=== PATIENT | male | born 1970 | race Caucasian/White ===

== ENCOUNTER 2023-01-02 08:14 | Emergency (ER) | payer OTHER, SELFPAY ==
--- NOTE | ~2023-01-02 | CT_ITS ---
Noncontrast CT scan of the cervical spine Technique: Multiple contiguous axial [address] images of the cervical spine were obtained and rec onstructed in 2D sagittal and coronal planes on the acquisition scanner. Dose reduction technique was used on this scan by utilizing automated exposure control, adjustment of the mA and/or kV according to patient size. Clinical History: Pain Findings: No fractures or dislocations. Mild scattered facet joint degenerative changes are noted. T he intervertebral disc spaces are preserved. No prevertebral soft tissue swelling. Impression: No fracture or subluxation of the cervical spine. Reviewed, dictated and finalized at location . MAKING MACHINE OPERATOR Impression: No fracture or subluxation of the cervical spine.
--- NOTE | ~2023-01-02 | CT_ITS ---
Non-contrast Head CT History: Head injury Technique: Axial non-contrast imaging of the brain was performed. Dose reduction technique was used on this scan by utilizing automated exposure control and iterative reconstruction technique. The dose -length product (DLP) was 605.33 mGy-cm. Findings: There is no evidence of intracranial hemorrhage, mass lesion, or acute infarct. Brain par enchyma appears normal. The ventricles and subarachnoid spaces are normal in size. The calvarium ap pears normal. The visualized paranasal sinuses and mastoid air cells are clear. Impression: No significant abnormality seen. Reviewed, dictated and finalized at [facility]. CIATE TECHNICIAN Impression: No significant abnormality seen.
[2023-01-02 08:16] VITALS: BP 174/86; PULSE 95; RESP 20; TEMP 36.8; O2SAT 98
[2023-01-02] MEDS: TETANUS,DIPHTHERIA,AC PERTUSSIS ADULT (0.5 ML) BOOSTRIX IM (08:52)
--- NOTE | 2023-01-02 09:04 | ED.GENADULT ---
HPI - General Adult General Chief complaint: Head Injury <Delonte Stephens MD - Last Filed: 01/02/23 19:32> Stated complaint: HEAD INJURY AT WORK <Delonte Stephens MD - Last Filed: 01/02/23 19:32> Time Seen by Provider: 01/02/23 08:28 <Delonte Stephens MD - Last Filed: 01/02/23 19:32> History of Present Illness HPI narrative: 52-year-old male presenting to the emergency department for evaluation after a head injury. Patient states he was at work had a mechanical fall tripping backward over lawnmower striking his head. Patient denied loss conscious. Patient states he does have some mild neck pain with this as well. Patient does have a laceration to his posterior scalp. Bleeding is controlled. Patient denies being on any blood thinners. Patient is unsure when his last tetanus shot was. <Delonte Stephens MD - Last Filed: 01/02/23 19:32> Related Data Allergies/adverse reactions: Allergies Allergy/AdvReac Type Severity Reaction Status Date / Time fentanyl Allergy Mild Vomiting Verified 01/02/23 08:29 <Delonte Stephens MD - Last Filed: 01/02/23 19:32> Review of Systems Review of Systems: CONSTITUTIONAL: Denies fever, chills, or sweats. EYES: Denies visual changes, redness, or discharge. ENT: Denies rhinorrhea, congestion, sore throat, or otalgia. CARDIOVASCULAR: Denies chest pain, palpitations, or edema. RESPIRATORY: Denies cough or dyspnea. GASTROINTESTINAL: Denies abdominal pain, nausea, vomiting, or diarrhea. GENITOURINARY: Denies dysuria or hematuria. SKIN: See HPI MUSCULOSKELETAL: See HPI NEUROLOGIC: Denies headache, numbness, or weakness. PSYCHIATRIC: Denies anxiety or depression. <Delonte Stephens MD - Last Filed: 01/02/23 19:32> All systems reviewed & are unremarkable except as noted in HPI and below <Delonte Stephens MD - Last Filed: 01/02/23 19:32> Exam Narrative: APPEARANCE: Well appearing, no pain, no distress, well-nourished. HEAD: normocephalic, atraumatic. EYES: PERRLA/EOMI, conjunctivae clear. NOSE: Normal no drainage NECK: Supple. No adenopathy, no masses. RESPIRATORY: Airway patent, respirations nonlabored. Clear to auscultation bilaterally, no rales, rhonchi, wheezing. CARDIOVASCULAR: Regular rate and rhythm without murmurs rubs or gallops. ABDOMINAL: Soft, nontender, nondistended, normal bowel sounds MUSCULOSKELETAL: Moves all extremities. NEURO: Alert. Cranial nerves II through XII intact. Good gait. Good coordination SKIN: Laceration to posterior scalp PSYCHIATRIC: Normal affect/mood. <Delonte Stephens MD - Last Filed: 01/02/23 19:32> Course Course Emergency Course: 52-year-old male presented emerged department for evaluation of head injury and resulting laceration. Patient's head and neck CT were negative for acute abnormality. Patient's laceration was repaired as described in the procedure note. Patient denied having any dizziness or lightheadedness and reports this was a mechanical fall. Patient was alert and oriented at his baseline. Patient was updated. Patient was discharged home with close instructions on wound care and instructions on close follow-up with his primary care physician. All question concerns were addressed patient was comfortable to plan for discharge and close follow-up. <Delonte Stephens MD - Last Filed: 01/02/23 19:32> Vital Signs Vital signs: Vital Signs Temperature 98.2 F 01/02/23 08:16 Pulse Rate 95 01/02/23 08:16 Respiratory Rate 20 01/02/23 08:16 Blood Pressure 174/86 H 01/02/23 08:16 Pulse Oximetry 98 01/02/23 08:16 Oxygen Delivery Room Air 01/02/23 08:16 Temperature 98.2 F 01/02/23 08:16 Pulse Rate 80 01/02/23 10:13 Respiratory Rate 16 01/02/23 10:13 Blood Pressure 148/54 H 01/02/23 10:13 Pulse Oximetry 100 01/02/23 10:13 Oxygen Delivery Room Air 01/02/23 08:16 <Delonte Stephens MD - Last Filed: 01/02/23 19:32> Vital Signs Temperature 98.2 F 01/02/23 08:16
--- NOTE | 2023-01-02 09:55 | ED.HEATRA ---
HPI - Head Injury General Chief complaint: Head Injury Stated complaint: HEAD INJURY AT WORK Time Seen by Provider: 01/02/23 08:28 History of Present Illness HPI Narrative: 52-year-old male here for evaluation of a head laceration after tripping and falling at work. States that he tripped on an object and fell, striking the back of his head against the ground. He denies loss of consciousness. He does not take blood thinner medicines. Currently complaining of a posterior headache but no nausea, vomiting, visual changes, seizures or altered mental status. No other injuries in the fall, has been able to walk without issue. Unsure of his last tetanus shot. Related Data Allergies Allergy/AdvReac Type Severity Reaction Status Date / Time fentanyl Allergy Mild Vomiting Verified 01/02/23 08:29 Review of Systems Review of Systems: Gen.: Denies fevers or chills Eyes: Denies eye pain or visual change ENT: Denies congestion Respiratory: Denies shortness of breath or cough CV: Denies chest pain or palpitations GI: Denies abdominal pain nausea, emesis or diarrhea denies burning, urgency, frequency or hematuria Musculoskeletal: Denies back pain or muscle pain Neuro: Denies numbness, tingling, weakness or focal weakness Skin: Reports head laceration Except as documented, all other systems reviewed and negative Exam Narrative: APPEARANCE: Well appearing, no pain in distress, well-nourished. Head: Patient has small hematoma to the posterior head with a 2 and half centimeter linear laceration with active bleeding. EYES: PERRLA/EOMI, conjunctivae clear NOSE: No nasal drainage EARS: External ear normal in appearance THROAT: Oropharynx is clear. Mucous membranes are moist. NECK: No midline tenderness to C-spine. Supple. No adenopathy, no masses. RESPIRATORY: Airway patent, respirations nonlabored. Clear to auscultation bilaterally, no rales, rhonchi, wheezing. CARDIOVASCULAR: Regular rate and rhythm without murmurs, rubs, or gallops. ABDOMINAL: Normoactive bowel sounds. Soft, nontender, nondistended. No rebound tenderness or guarding. MUSCULOSKELETAL: Extremities are warm and well-perfused. Moves all extremities well. No edema. NEURO: Normal speech. No focal neurologic deficits. SKIN: Skin is warm and dry. No rashes. PSYCHIATRIC: Normal affect/mood.. Course Vital Signs Vital signs: Vital Signs Temperature 98.2 F 01/02/23 08:16 Pulse Rate 95 01/02/23 08:16 Respiratory Rate 20 01/02/23 08:16 Blood Pressure 174/86 H 01/02/23 08:16 Pulse Oximetry 98 01/02/23 08:16 Oxygen Delivery Room Air 01/02/23 08:16 Temperature 98.2 F 01/02/23 08:16 Pulse Rate 80 01/02/23 10:13 Respiratory Rate 16 01/02/23 10:13 Blood Pressure 148/54 H 01/02/23 10:13 Pulse Oximetry 100 01/02/23 10:13 Oxygen Delivery Room Air 01/02/23 08:16 Procedures Laceration Laceration 1: Date: 01/02/23 Time: 09:56 Site: scalp Side (If applicable): left Size (cm): 2.5 Description: linear Depth: simple, single layer Local Anesthetic: other anesthetic (LET) Pre-repair: wound explored and irrigated ====== Skin Level ====== Skin layer closed with: shima Number of sutures: 5 Technique: simple, interrupted ====== Subcutaneous Layer ====== ====== Muscle Layer ====== ====== Tendon Layer ====== MDM - Head Injury MDM Narrative Medical decision making narrative: 52-year-old male here for evaluation of a fall with head injury earlier today after slipping on an object at work. He has evidence of a small laceration onto his scalp that was repaired with shima. His tetanus was updated. Images of the head and C-spine showed no acute findings. He does not take blood thinner medicines. Discharged home to follow-up with his PMD. Return precautions were discussed and he voiced understanding. Discharge Plan Discharge Clinical Lucien
[2023-01-02 10:13] VITALS: BP 148/54; PULSE 80; RESP 16; O2SAT 100
== END 2023-01-02 10:16 | disposition home or self-care (01) ==
PROVIDERS: Emergency Provider Emergency Medicine; PCP Internal Medicine
DX: S01.01XA Laceration without foreign body of scalp, initial encounter (principal); W01.198A Fall on same level from slipping, tripping and stumbling with subsequent striking against other object, initial encounter; Z23 Encounter for immunization
CPT/HCPCS: 12002; 70450; 72125; 90471; 90715; 99284

== ENCOUNTER 2024-02-22 15:00 | Outpatient (RCR) | payer OTHER, SELFPAY ==
--- NOTE | 2024-02-04 09:20 | PTOPEVAL1 ---
Assessment and note entered by Monty Nazario Evaluation Information Assessment Status Evaluation Diagnosis right shoulder pain Onset 12/06/23 Subjective Information Pt. reports that he woke with right shoulder pain about 2 months ago. He states that pain began in the right shoulder and would shoot down the entire arm. He states that pain is now more localized to the front and side of the right shoulder. He is left hand dominant. He states pain is increased with reaching across the body with the right arm, as well as taking his coat on and off. he reports that reaching to the back seat of his vehicle will also increase his shoulder pain. He notices pain with reaching overhead as well. He states that he will have a disruption in sleep almost every night due to pain in the right shoulder. He states that he has learned to adapt and is still completing most activities despite pain. 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 His goal for therapy is to decrease his right shoulder pain. Reported Pain Level Pain Score 5: Self Report Assessment PT Clinical Summary Pt. is a 53 year old male who enters the clinic with right shoulder pain. He presents with objective findings consistent with right shoulder impingement syndrome. Continued skilled PT is indicated in order to improve ROM, right shoulder strength, postural awareness and to reduce pain. Plan of Care Interventions Electrical Stimulation,Hot Pack/Cold Pack,Manual Therapy,Neuro Re-education,Patient/Caregiver Education,Therapeutic Activities,Therapeutic Exercise Other Interventions dry needling PT Services Indicated Yes Treatment Frequency and 2x/week x 10 visits Duration These treatments will address the objective and functional deficits as defined above. The patient will be advanced safely and appropriately in order for the patient to progress towards his/her prior level of function. Additional exercises will be introduced and as well as a comprehensive home exercise program upon discharge, if needed, ?to ensure carryover of functional gains achieved in the clinic. This treatment plan has been reviewed and agreement upon by the patient.
--- NOTE | 2024-02-04 09:21 | OPREHPOC ---
Outpatient Therapy Plan of Care This is a Multidisciplinary Plan of Care that may contain components documented by all disciplines (PT, OT, and ST.) PT Problem 1 PT Problem #1 Knowledge Deficit PT Goal 1 Goal Independent with a HEP addressing ROM and strength Target Visit 2 PT Problem 2 PT Problem #2 Impaired Range of Motion PT Goal 1 Goal Pt. will demonstrates symmetry between left and right u.e. with functional reach testing into IR and ER Pt. will achieve 160 degrees active right shoulder flexion in sitting Target Visit 10 PT Problem 3 PT Problem #3 Impaired Strength PT Goal 1 Goal Pt. will present with 5/5 gross right u.e. strength Target Visit 10 PT Problem 4 PT Problem #4 Impaired Functional Mobil PT Goal 1 Goal Pt. will be able to lift a 5# object overhead for 10 reps with the right u.e. without pain increase Pt. will present with less than 25% limitation on the Quick DASH indicating improve overall function . Target Visit 10
--- NOTE | 2024-03-01 17:54 | PCPTNOTE ---
Patient cancelled due to work schedule conflict.
--- NOTE | 2024-03-08 08:05 | PCPTNOTE ---
Patient no show for today's appointment.
--- NOTE | 2024-03-14 08:47 | PCPTNOTE ---
pt did not show for today's appt; called pt and left voice mail reminder of next appt and if he does not show for that appt, will be d/c per our policy.
--- NOTE | 2024-03-21 16:51 | PCPTNOTE ---
Pt no showed visit today.
--- NOTE | 2024-03-31 16:09 | PCPTNOTE ---
Mr. Mejía last attended PT on 02/22/24. He contacted the clinic on 03/29/24 stating that he was doing better. He requested to be discharged at this time. Monty Nazario, MPT
== END 2024-04-01 08:48 | disposition home or self-care (01) ==
LOC: ANHPT 15:00
PROVIDERS: PCP Internal Medicine; Visit Provider Family Medicine
DX: M25.511 Pain in right shoulder (principal); G89.29 Other chronic pain
CPT/HCPCS: 97110; 97140; 97161; 99199